=== PATIENT | female | born 1995 | race Caucasian/White ===

== ENCOUNTER 2019-06-24 15:19 | Emergency (ER) | payer OTHER ==
[2019-06-24 15:28] VITALS: BMI 30.6
[2019-06-24] MEDS ORDERED: MAG HYDROX/AL HYDROX/SIMETH -MYLANTA- ORAL SUSPENSION PO ONE (15:32)
--- NOTE | 2019-06-24 15:32 | PDOC ---
Rapid Medical Evaluation Chief Complaint: Pain Time Seen by Provider: 06/24/19 15:29 Medical Evaluation: Vital Signs Temp Pulse Resp BP Pulse Ox 98.5 F 82 117/68 99 06/24/19 15:25 06/24/19 15:25 06/24/19 15:25 06/24/19 15:25 06/24/19 15:31 Patient presents to ED with complaints of: epigastric burning x 1 month , worse after meals, decreased po intake the past few days, no other complaints Patient on brief exam: tenderness to epigastric region, vss I have ordered: labs, urine and maalox Patient to proceed to the ED Discharge Disposition - Diagnosis Epigastric abdominal pain - Referrals - Patient Instructions - Post Discharge Activity
[2019-06-24] MEDS ORDERED: MAG HYDROX/AL HYDROX/SIMETH 30 ML UNIT-DOSE CUP ONE (16:01)
[2019-06-24 16:14] LABS: BASO % 0.9 % (0-2.0); EOS % 2.1 % (0-4.5); HEMOGLOBIN 12.3 GM/dL (10.7-15.3); LYMPH % 27.6 % (8-40); MCH 28.1 pg (25.7-33.7); MCHC 32.5 g/dl (32.0-36.0); MEAN CELL VOLUME 86.4 fl (80-96); MEAN PLT VOLUME 7.8 fl (7.5-11.1); MONO % 9.3 % (3.8-10.2); NEUT % 60.1 % (42.8-82.8); PLATELET COUNT 346 K/MM3 (134-434); RDW 14.5 % (11.6-15.6); WHITE BLOOD COUNT 6.6 K/mm3 (4.0-10.0)
[2019-06-24 16:26] LABS: URINE APPEARANCE CLEAR; URINE BILIRUBIN NEGATIVE (NEGATIVE); URINE COLOR YELLOW; URINE GLUCOSE (UA) NEGATIVE (NEGATIVE); URINE KETONE NEGATIVE (NEGATIVE); URINE LEUK ESTERASE NEGATIVE (NEGATIVE); URINE NITRITE NEGATIVE (NEGATIVE); URINE PROTEIN NEGATIVE (NEGATIVE); URINE UROBILINOGEN 0.2 mg/dL (0.2-1.0)
[2019-06-24 16:29] LABS: ALBUMIN 3.4 g/dl (3.4-5.0); BILIRUBIN,TOTAL 0.2 mg/dL (0.2-1); BLOOD UREA NITROGEN 13.1 mg/dL (7-18); CALCIUM 8.8 mg/dL (8.5-10.1); CREATININE 0.7 mg/dL (0.55-1.3); POTASSIUM 4.1 mmol/L (3.5-5.1)
--- NOTE | 2019-06-24 17:49 | PDOC ---
History of Present Illness - General Chief Complaint: Pain Stated Complaint: ABD PAIN Time Seen by Provider: 06/24/19 15:29 - History of Present Illness Initial Comments: 06/24/19 17:50 24 y/o/f here for epigastric burning for the last month. She states the pain is intermittent and worse with food. She describes the pain as burning. She has not taken any medications for the pain. The pain does not radiate. She has a decreased appetite due to pain. She has had normal bowel movements, last bowel movement was today. She denies any dysuria, hematuria, back pain, fever, cough, chest pain, SOB, or other concerns. 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 No: Diarrhea, Nausea, Vomiting : No: Dysuria, Hematuria Musculoskeletal: No: Back Pain Integumentary: No: Rash Neurological: No: Headache Endocrine: No: Excessive Sweating *Physical Exam - Vital Signs Last Vital Signs Temp Pulse Resp BP Pulse Ox 98.5 F 82 117/68 99 06/24/19 15:25 06/24/19 15:25 06/24/19 15:25 06/24/19 15:25 - Physical Exam General Appearance: Yes: Nourished, Appropriately Dressed HEENT: positive: EOMI, Normal Voice, Symmetrical Neck: positive: Trachea midline, Supple Respiratory/Chest: positive: Lungs Clear, Normal Breath Sounds. negative: Accessory Muscle Use Cardiovascular: positive: Regular Rhythm, Regular Rate, S1, S2 Gastrointestinal/Abdominal: positive: Normal Bowel Sounds, Soft, Other ( epigastric tenderness to palpation) Musculoskeletal: negative: CVA Tenderness Extremity: positive: Normal Capillary Refill Integumentary: positive: Normal Color Neurologic: positive: Fully Oriented, Alert, Normal Mood/Affect ED Treatment Course - LABORATORY CBC & Chemistry Diagram: 06/24/19 15:48 06/24/19 15:48 - ADDITIONAL ORDERS Additional order review: Laboratory Results 06/24/19 06/24/19 15:48 15:48 Sodium 140 Potassium 4.1 Chloride 108 H Carbon Dioxide 24 Anion Gap 8 BUN 13.1 Creatinine 0.7 Est GFR (CKD-EPI)AfAm 142.54 Est GFR (CKD-EPI)NonAf 122.98 Random Glucose 94 Calcium 8.8 Total Bilirubin 0.2 AST 13 L ALT 21 Alkaline Phosphatase 81 Total Protein 7.0 Albumin 3.4 Lipase 127 Urine Color Yellow Urine Appearance Clear Urine pH 7.0 Ur Specific [place] 1.019 Urine Protein Negative Urine Glucose (UA) Negative Urine Ketones Negative Urine Blood Negative Urine Nitrite Negative Urine Bilirubin Negative Urine Urobilinogen 0.2 Ur Leukocyte Esterase Negative 06/24/19 15:48 RBC 4.40 MCV 86.4 MCHC 32.5 RDW 14.5 MPV 7.8 Neutrophils % 60.1 Lymphocytes % 27.6 Monocytes % 9.3 Eosinophils % 2.1 Basophils % 0.9 - Medications Given in the ED: ED Medications Discontinued Medications Generic Name Dose Route Start Last Admin Trade Name Nicolasa PRN Reason Stop Dose Admin Al Hydroxide/Mg Hydroxide 30 ml 06/24/19 15:32 06/24/19 16:10 Mylanta Suspension - PO 06/24/19 15:33 30 ml ONCE ONE Administration Medical Decision Making - Medical Decision Making 06/24/19 18:34 24 y/o/f here for epigastric burning for the last month. She states the pain is intermittent and worse with food. She describes the pain as burning. Patient CBC, CMP, UA were grossly negative. Patient was given Maalox with some improvement in pain. Also given a Pepcid for further symptom management. Patient given information on acid reflux. Discharged with referral to Dr. Wilson. *DC/Admit/Observation/Transfer Diagnosis at time of Disposition: Epigastric abdominal pain - Discharge Dispostion Disposition: HOME Condition at time of disposition: Good - Referrals Referrals: Sami Wilson MD [Staff Physician] - - Patient Instructions Printed Discharge Instructions: DI for Gastroesophageal Reflux Disease (GERD) Additional Instructions: You were in seen in the ER for abdominal pain which is likely due to acid reflux disease. If you have worsening pain, start vomiting, or have other concerns return to the ER. We are referring you to Dr. Wilson, please follow up with him in the next week. Print Language: ESTONIAN - Post Discharge Activity
[2019-06-24] MEDS ORDERED: RANITIDINE HCL 150 MG TABLET (FP) PO ONE (18:10)
[2019-06-24] MEDS ORDERED: RANITIDINE HCL 150 MG TABLET (FP) ONE (18:36)
--- NOTE | 2019-06-24 18:57 | PDOC ---
Attending Attestation - Resident Resident Name: El Clarkamina Arevalo - HPI HPI: 06/24/19 19:25 Pt presents to the ED complaining of burning epigastric pain that has been intermittent for several weeks, but was worse today. Denies fever, nausea or vomiting, bloody stool. Feels better after maalox in the ED. - Physicial Exam PE: 06/24/19 19:27 Agree with resident exam. patient is alert and in no acute distress. Abdomen is soft, non tender, non distended without guarding or rebound. - Medical Decision Making 06/24/19 19:28 Pt presents to the ED complaining of burning epigastric abdominal pain. Differential included gastritis, less likely pancreatitis, biliary disease. Labs checked including LFts and lipase and are negative. Feels improved after maalox. Will discharge home.
[2019-06-24 19:00] VITALS: BP 114/67; PULSE 60; TEMP 97.7
== END 2019-06-24 19:00 | disposition home or self-care (01) ==
LOC: JER 15:19
DX: R10.13 Epigastric pain (principal)
CPT/HCPCS: 36415; 80053; 81003; 83690; 84703; 85025; 99283-25

== ENCOUNTER 2019-07-04 16:26 | Emergency (ER) | payer OTHER ==
[2019-07-04 16:38] VITALS: BP 108/65; PULSE 71; TEMP 98.7; BMI 29.9
== END 2019-07-04 19:30 | disposition left against medical advice (07) ==
LOC: JER 16:26
DX: Z53.21 Procedure and treatment not carried out due to patient leaving prior to being seen by health care provider (principal)
CPT/HCPCS: 99281-25

== ENCOUNTER 2019-10-10 23:55 | Emergency (ER) | payer OTHER ==
[2019-10-11 00:15] VITALS: BP 117/68; PULSE 93; TEMP 97.4; BMI 33.2
--- NOTE | 2019-10-11 00:54 | PDOC ---
History of Present Illness - General Chief Complaint: Pain Stated Complaint: 2 MO PREG,UPPER GASTRIC PAIN Time Seen by Provider: 10/11/19 00:53 History Source: Patient - History of Present Illness Initial Comments: 10/11/19 02:17 24 year old female c/o upper abdominal pain on and off x 2 months. denies urinary symptoms. reports nausea and constipation. denies vaginal bleeding, pelvic, lower abdominal pain PATIENT Was seen by cross country coach and was referred to 10/11/19 05:21 Past History - Past Medical History Allergies/Adverse Reactions: Allergies Allergy/AdvReac Type Severity Reaction Status Date / Time No Known Allergies Allergy Verified 07/04/19 16:51 COPD: No - Immunization History Immunization Up to Date: No - Psycho Social/Smoking Cessation Hx Smoking History: Unknown if ever smoked Hx Alcohol Use: No Drug/Substance Use Hx: No Review of Systems - Review of Systems Able to Perform ROS?: Yes Is the patient limited Ivorian proficient: No Constitutional: No: Symptoms Reported, See HPI, Chills, Diaphoresis, Fever, Loss of Appetite, Malaise, Night Sweats, Weakness, Weight Stable, Unintentional Wgt. Loss, Unexplained wgt Loss, Other *Physical Exam - Vital Signs Last Vital Signs Temp Pulse Resp BP Pulse Ox 97.4 F L 93 H 16 117/68 99 10/11/19 00:06 10/11/19 00:06 10/11/19 00:06 10/11/19 00:06 10/11/19 00:06 - Physical Exam General Appearance: Yes: Appropriately Dressed HEENT: positive: Normal ENT Inspection Respiratory/Chest: positive: Lungs Clear, Normal Breath Sounds Gastrointestinal/Abdominal: positive: Normal Bowel Sounds, Soft. negative: Tender Integumentary: positive: Normal Color, Dry, Warm Neurologic: positive: Fully Oriented, Alert, Normal Mood/Affect ED Treatment Course - LABORATORY CBC & Chemistry Diagram: 10/11/19 03:00 10/11/19 03:00 Medical Decision Making - Medical Decision Making A: abdominal pain in P: labs Abdominal US 10/11/19 02:09 Abd US: Gallstones without secondary findings of cholecystitis. Ultrasound :Uterus measures 8.6centimeters in length. There is a twin IUP. Fetus A demonstrates an estimated gestational age of 7weeks and 1days with normal heart rate of 132beats per minute. The second demonstrates a gestational sac and yolk sac only without pole. There is a small proximal subchorionic bleed. The right ovary measures 3.4centimeters in length and contains a simple 1.6 cm cyst. The left ovary is not visualized. There is no significant free fluid. 1 Discharge - Discharge Information Problems reviewed: Yes Clinical Impression/Diagnosis: Cholelithiasis Qualifiers: Cholelithiasis location: gallbladder Cholecystitis presence: without cholecystitis Biliary obstruction: without biliary obstruction Qualified Code(s) : K80.20 - Calculus of gallbladder without cholecystitis without obstruction Condition: Good Disposition: HOME - Follow up/Referral - Patient Discharge Instructions Patient Printed Discharge Instructions: DI for Gallstones Additional Instructions: avoid fatty foods. follow up with a gastroenerologist as soon as possible. return to the ER for any worsening symptoms - Post Discharge Activity Work/Back to School Note: Back to Work
[2019-10-11 02:21] LABS: PH,URINE 7.5 (5.0-8.0); URINE APPEARANCE TURBID; URINE BILIRUBIN NEGATIVE (NEGATIVE); URINE COLOR YELLOW; URINE GLUCOSE (UA) NEGATIVE (NEGATIVE); URINE KETONE NEGATIVE (NEGATIVE); URINE LEUK ESTERASE NEGATIVE (NEGATIVE); URINE NITRITE NEGATIVE (NEGATIVE); URINE PROTEIN NEGATIVE (NEGATIVE)
[2019-10-11 03:23] LABS: BASO % 0.4 % (0-2.0); EOS % 0.8 % (0-4.5); HEMATOCRIT 34.5 % (32.4-45.2); HEMOGLOBIN 11.3 GM/dL (10.7-15.3); LYMPH % 14.5 % (8-40); MCH 28.1 pg (25.7-33.7); MCHC 32.9 g/dl (32.0-36.0); MEAN CELL VOLUME 85.5 fl (80-96); MEAN PLT VOLUME 7.8 fl (7.5-11.1); MONO % 7.5 % (3.8-10.2); NEUT % 76.8 % (42.8-82.8); PLATELET COUNT 328 K/MM3 (134-434); RBC 4.03 M/mm3 (3.60-5.2); RDW 14.5 % (11.6-15.6); WHITE BLOOD COUNT 9.7 K/mm3 (4.0-10.0)
[2019-10-11 03:52] LABS: ALBUMIN 3.1 g/dl (3.4-5.0); BILIRUBIN,TOTAL 0.2 mg/dL (0.2-1); BLOOD UREA NITROGEN 8.8 mg/dL (7-18); CALCIUM 8.5 mg/dL (8.5-10.1); CREATININE 0.5 mg/dL (0.55-1.3); POTASSIUM 3.6 mmol/L (3.5-5.1); TOT PROT 6.8 g/dl (6.4-8.2)
[2019-10-11 10:15] LABS: ANISOCYTOSIS 0; HELMET CELLS 0; HOWELL-JOLLY BODIES 0; MACROCYTOSIS 0; OVALOCYTE 0; PLATELET ESTIMATE NORMAL; ROULEAU 0; SICKELED CELLS 0; TARGET CELLS 0; TEAR DROP CELLS 0; TOXIC GRANULATION 0
== END 2019-10-11 05:03 | disposition home or self-care (01) ==
LOC: JER 23:55
DX: O26.891 Other specified pregnancy related conditions, first trimester (principal); O99.611 Diseases of the digestive system complicating pregnancy, first trimester; K80.20 Calculus of gallbladder without cholecystitis without obstruction; Z3A.01 Less than 8 weeks gestation of pregnancy
CPT/HCPCS: 36415; 76705-TC; 76801-TC; 80053; 81003; 83690; 85025; 99282-25

== ENCOUNTER 2020-05-07 02:45 | Inpatient (IN) | payer OTHER ==
[2020-05-07] MEDS ORDERED: CITRIC ACID/SODIUM CITRATE 30 ML UNIT-DOSE CUP PO ONE ×2 (04:10→08:25)
[2020-05-07] MEDS ORDERED: ELECTROLYTE-148 SOLN 500 ML IV ONE (04:10)
[2020-05-07] MEDS ORDERED: ELECTROLYTE-148 SOLN 1,000 ML IV SCH (04:40)
[2020-05-07 05:02] VITALS: BMI 36.8
[2020-05-07 05:29] LABS: BASO % 0.3 % (0-2.0); EOS % 1.2 % (0-4.5); HEMOGLOBIN 10.7 GM/dL (10.7-15.3); LYMPH % 19.9 % (8-40); MCH 28.3 pg (25.7-33.7); MCHC 33.3 g/dl (32.0-36.0); MEAN CELL VOLUME 84.9 fl (80-96); MEAN PLT VOLUME 7.9 fl (7.5-11.1); MONO % 8.4 % (3.8-10.2); NEUT % 70.2 % (42.8-82.8); PLATELET COUNT 307 K/MM3 (134-434); RBC 3.77 M/mm3 (3.60-5.2); RDW 14.6 % (11.6-15.6); WHITE BLOOD COUNT 10.1 K/mm3 (4.0-10.0)
[2020-05-07] MEDS ORDERED: AMPICILLIN - 2 GM in SODIUM CHLORIDE 100 ML IVPB ONE (05:30)
[2020-05-07 05:38] LABS: INR 0.89 (0.83-1.09); PROTHROMBIN TIME (PATIENT) 10.5 SEC (9.7-13.0)
[2020-05-07 05:41] LABS: ACTIVATED PTT 28.9 SECONDS (25.2-36.5)
[2020-05-07 05:54] LABS: ALBUMIN 2.6 g/dl (3.4-5.0); BILIRUBIN,TOTAL 0.2 mg/dL (0.2-1); BLOOD UREA NITROGEN 7.3 mg/dL (7-18); CALCIUM 8.8 mg/dL (8.5-10.1); CREATININE 0.5 mg/dL (0.55-1.3); POTASSIUM 4.1 mmol/L (3.5-5.1); TOT PROT 6.6 g/dl (6.4-8.2)
[2020-05-07] MEDS ORDERED: AMPICILLIN SODIUM 2 GM VIAL ONE (06:09)
[2020-05-07] MEDS ORDERED: morphine SULFATE/PF 0.5 MG/ML (2cc Syringe - QUVA) ONE (07:50)
[2020-05-07] MEDS ORDERED: OXYTOCIN 20 UNITS in 0.9% NS 20 UNIT/1,000 ML INFUS.BAG IV ONE ×2 (07:51→11:40)
--- NOTE | 2020-05-07 08:32 | HP ---
Past Medical History - Admission Chief Complaint: Leakage of fluid History of Present Illness: 25 yo @ 37 weeks gestation with 3 prior , admitted for spontaneous rupture of membrane. She desires permanent sterilization. She's pre op for repeat and bilateral tubal ligation. History Source: Patient Limitations to Obtaining History: No Limitations - Past Medical History ...: 5 ...Para: 3 ...Term: 3 ...Induced : 1 ...Living Children: 3 ...LMP: 08/21/19 ...EDC by Sono: 05/26/20 - Past Surgical History Past Surgical History: Yes: Hx Myomectomy: No Hx Transabdominal Cerclage: No - Smoking History Smoking history: Unknown if ever smoked - Alcohol/Substance Use Hx Alcohol Use: No History of Substance Use: reports: None - Social History Usual Living Arrangement: Yes: With Significant Other History of Recent Travel: No Home Medications - Allergies Allergies/Adverse Reactions: Allergies Allergy/AdvReac Type Severity Reaction Status Date / Time No Known Allergies Allergy Verified 07/04/19 16:51 Family Medical History Family History: Unremarkable Review of Systems - Review of Systems Constitutional: reports: No Symptoms Eyes: reports: No Symptoms HENT: reports: No Symptoms Neck: reports: No Symptoms Cardiovascular: reports: No Symptoms Respiratory: reports: No Symptoms Gastrointestinal: reports: No Symptoms Genitourinary: reports: Other (Leakage of fluid) Breasts: reports: No Symptoms Reported Musculoskeletal: reports: No Symptoms Integumentary: reports: No Symptoms Neurological: reports: No Symptoms Hematology/Lymphatic: reports: No Symptoms Psychiatric: reports: No Symptoms Pain Intensity: 2 Physical Exam - Maternity Vital Signs: Vital Signs Temperature 98 F 05/07/20 04:49 Pulse Rate 91 H 05/07/20 04:49 Respiratory Rate 20 05/07/20 04:49 Blood Pressure 118/79 05/07/20 04:49 O2 Sat by Pulse Oximetry (%) Constitutional: Yes: Well Nourished Eyes: Yes: Conjunctiva Clear HENT: Yes: Atraumatic Neck: Yes: Supple Cardiovascular: Yes: Regular Rate and Rhythm Lungs: Clear to auscultation - Abdominal Exam/OB Number of Fetuses: Single Presentation: Vertex - Vaginal Exam/OB Vaginal Bleeding: No Amniotic Membrane Status: Ruptured - Physical Exam Musculoskeletal: Yes: WNL ...Motor Strength: WNL Psychiatric: Yes: Alert, Oriented - Labs Lab Results: CBC, BMP 05/07/20 04:20 05/07/20 04:20 Problem List - Problems (1) 37 weeks gestation of Problems reviewed: Yes Code(s): Z3A.37 - 37 WEEKS GESTATION OF (2) Multiparity, grand, in labor and delivery, antepartum Problems reviewed: Yes Code(s): O09.40 - SUPERVISION OF W GRAND MULTIPARITY, UNSP TRIMESTER (3) Previous section complicating , antepartum condition or complication Problems reviewed: Yes Code(s): O34.219 - MATERNAL CARE FOR UNSP TYPE SCAR FROM PREVIOUS DEL Assessment/Plan 37 weeks gestation Multiparity Previous Spontaneous rupture of membrane Pre op for repeat and bilateral tubal ligation Consent signed Anesthesia to see patient
[2020-05-07] MEDS ORDERED: METHYLERGONOVINE MALEATE 0.2 MG/1 ML AMP IM PRN (09:39)
[2020-05-07] MEDS ORDERED: IBUPROFEN 800 MG/8 ML IJ IVPB PRN (09:39)
[2020-05-07] MEDS ORDERED: IBUPROFEN 600 MG TABLET (FP) PO PRN (09:39)
[2020-05-07] MEDS ORDERED: SIMETHICONE 80 MG TAB.CHEW (FP) PO PRN (09:39)
--- NOTE | 2020-05-07 09:43 | OP ---
Operative Note - Note: Operative Date: 05/07/20 Pre-Operative Diagnosis: Previous / Spontaneous rupture of membrane / Multiparity Operation: Repeat Low Transverse / Bilateral Tubal Ligation Findings: Baby girl in ROT position with true knot on the cord Post-Operative Diagnosis: Same as Pre-op Surgeon: Alicja Marks Drama Critic: Billy Yusuf Anesthesia: Spinal Specimens Removed: Placenta / Portion of Fallopian tubes Estimated Blood Loss (mls): 600 Operative Report Dictated: Yes
[2020-05-07 10:00] LABS: CORD BASE EXCESS -3.9 mmol/L (0-2); CORD HCO3 23.2 mmHg (20-29); CORD PCO2 49.8 mmHg (30-78); CORD pH 7.286 (7.14-7.44)
[2020-05-07] MEDS: OXYTOCIN 20 UNITS in 0.9% NS 20 UNIT/1,000 ML INFUS.BAG IV SCH (10:00)
[2020-05-07 10:04] LABS: CORD BASE EXCESS -3.4 mmol/L (0-2); CORD HCO3 21.8 mmHg (20-29); CORD PCO2 39.9 mmHg (30-78); CORD pH 7.356 (7.14-7.44)
[2020-05-07] MEDS: PRENATAL VITAMINS W/ FOLIC ACID TABLET (FP) PO SCH (10:52)
[2020-05-07] MEDS: AMPICILLIN - 1 GM in SODIUM CHLORIDE 100 ML IVPB SCH ×2 (10:52→21:41)
[2020-05-07] MEDS ORDERED: ACETAMINOPHEN 325 MG TABLET (FP) PO PRN (11:23)
[2020-05-07] MEDS ORDERED: ONDANSETRON 4 MG/2 ML VIAL IVPUSH PRN (11:23)
--- NOTE | 2020-05-07 19:43 | OP ---
DATE OF OPERATION: 05/07/2020 PREOPERATIVE DIAGNOSIS: Thirty-seven weeks' gestation, previous section with rupture of membrane and multiparity. POSTOPERATIVE DIAGNOSIS: Thirty-seven weeks' gestation, previous section with rupture of membrane and multiparity. PROCEDURE: Repeat low transverse section and bilateral tubal ligation. SURGEON: Stevie Marks MD SPECIAL TESTER: STEPHANY Benson ANESTHESIA: Spinal. COMPLICATIONS: None. ESTIMATED BLOOD LOSS: 600 mL. DESCRIPTION OF PROCEDURE: Patient was taken to the operating room where spinal anesthesia was administered. Patient was then prepped and draped in proper sterile fashion. A Pfannenstiel skin incision was made and carried down to the underlying layer of fascia. The fascia was incised in the midline and extended laterally. The inferior aspect of the fascial incision was then grasped with a Fredy clamp, elevated, and the rectus muscle dissected off bluntly. Attention was then turned to the superior aspect of the fascial incision, which in a similar fashion was then grasped with a Fredy clamp, elevated, and the rectus muscle dissected off bluntly. The rectus muscle was then in the midline, the peritoneum identified and entered sharply with the Metzenbaum scissors. The peritoneal incision was extended superiorly and inferiorly, with good visualization of the bladder, and the vesicouterine peritoneum was then grasped with pickup and entered sharply with the Metzenbaum scissors. This incision was extended laterally and a bladder flap created digitally. The bladder blade was inserted and the lower uterine segment was incised using a 10-blade. This incision was extended laterally and the head delivered atraumatically. The nuchal cord was significantly long, and it was wrapped around the body with a true knot on it. Then the nose and mouth were suctioned and the cord clamped and cut. The infant was handed to the awaiting registered pharmacy technician. The placenta was removed manually, the uterus exteriorized and cleared of all clots and debris. The uterine incision was repaired using 0 Biosyn in a running locked fashion. A second layer of the same suture was used as a means to provide excellent hemostasis. The right tube was grabbed a [place], and using a plain gut tie, a 3-cm segment of the tube was tied and cut, and the tip of the tube was cauterized using Bovie cautery. The same procedure was then performed on the left side. The pelvis was then completely irrigated. The uterus was returned to the abdomen. The peritoneum was closed using 2-0 Biosyn in a running fashion, and the fascia was reapproximated using 0 Vicryl in a running fashion. The skin was closed in a subcuticular fashion using 3-0 Vicryl. Patient tolerated procedure well. Patient was then taken to PACU in stable condition. PATHOLOGY: Placenta and portion of fallopian tubes. STEVIE MARKS M.D. [id number]
[2020-05-07] MEDS: ELECTROLYTE-148 SOLN 1,000 ML IV SCH (21:41)
[2020-05-07] MEDS: FERROUS SO4 325 MG TABLET (FP) PO SCH (21:42)
[2020-05-08 08:05] LABS: BASO % 0.4 % (0-2.0); EOS % 0.8 % (0-4.5); HEMATOCRIT 30.6 % (32.4-45.2); HEMOGLOBIN 10.1 GM/dL (10.7-15.3); LYMPH % 8.1 % (8-40); MCH 27.9 pg (25.7-33.7); MCHC 32.9 g/dl (32.0-36.0); MEAN CELL VOLUME 84.8 fl (80-96); MEAN PLT VOLUME 7.8 fl (7.5-11.1); MONO % 8.7 % (3.8-10.2); PLATELET COUNT 269 K/MM3 (134-434); RDW 14.8 % (11.6-15.6); WHITE BLOOD COUNT 12.9 K/mm3 (4.0-10.0)
[2020-05-08 08:31] LABS: POC NITRAZINE POS
[2020-05-08] MEDS: PRENATAL VITAMINS W/ FOLIC ACID TABLET (FP) PO SCH (09:38)
[2020-05-08] MEDS: FERROUS SO4 325 MG TABLET (FP) PO SCH ×2 (09:38→17:35)
[2020-05-08] MEDS ORDERED: BISACODYL 10 MG SUPP.RECT RC PRN (09:39)
--- NOTE | 2020-05-08 10:03 | PN ---
Progress Note (short form) - Note Progress Note: Anesthesia Post op/pain Pt seen and examined S:Alert and awake, comfortable O: Vital Signs Temperature 98.1 F 05/08/20 05:49 Pulse Rate 94 H 05/08/20 05:49 Respiratory Rate 18 05/08/20 06:01 Blood Pressure 96/67 05/08/20 05:49 O2 Sat by Pulse Oximetry (%) 99 05/08/20 02:00 CBC, BMP 05/08/20 07:20 05/07/20 04:20 A/P Current Active Problems 37 weeks gestation of (Acute) Multiparity, grand, in labor and delivery, antepartum (Acute) Previous section complicating , antepartum condition or complication (Acute) s/p c section Doing well post op Continue current care Nicholas Lehman M.D.
--- NOTE | 2020-05-08 10:33 | PN ---
Post Progress Note - Subjective Subjective: 25 yo Para 4, status post repeat and BTL, seen and evaluated. Doing well. Post Day: 1 Type of Delivery: Repeat C/S Vital Signs: Vital Signs Temperature 98.1 F 05/08/20 05:49 Pulse Rate 94 H 05/08/20 05:49 Respiratory Rate 18 05/08/20 06:01 Blood Pressure 96/67 05/08/20 05:49 O2 Sat by Pulse Oximetry (%) 99 05/08/20 02:00 Breast Exam: Yes: Soft Uterus: Yes: Fundus below umbilicus Incision: Yes: Dressing dry and intact Abdomen/GI: Yes: Abdomen soft, Tolerating PO Lochia: Yes: Rubra Lochia, amount: Small Extremities: Yes: Calves non-tender Activity: Ambulating - Labs Labs: CBC WBC 12.9 K/mm3 (4.0-10.0) H 05/08/20 07:20 RBC 3.60 M/mm3 (3.60-5.2) 05/08/20 07:20 Hgb 10.1 GM/dL (10.7-15.3) L 05/08/20 07:20 Hct 30.6 % (32.4-45.2) L 05/08/20 07:20 MCV 84.8 fl (80-96) 05/08/20 07:20 MCH 27.9 pg (25.7-33.7) 05/08/20 07:20 MCHC 32.9 g/dl (32.0-36.0) 05/08/20 07:20 RDW 14.8 % (11.6-15.6) 05/08/20 07:20 Plt Count 269 K/MM3 (134-434) 05/08/20 07:20 MPV 7.8 fl (7.5-11.1) 05/08/20 07:20 Absolute Neuts (auto) 10.6 K/mm3 (1.5-8.0) H 05/08/20 07:20 Neutrophils % 82.0 % (42.8-82.8) 05/08/20 07:20 Lymphocytes % 8.1 % (8-40) D 05/08/20 07:20 Monocytes % 8.7 % (3.8-10.2) 05/08/20 07:20 Eosinophils % 0.8 % (0-4.5) 05/08/20 07:20 Basophils % 0.4 % (0-2.0) 05/08/20 07: Nucleated RBC % 0 % (0-0) 05/08/20 07:20 Problem List - Problems (1) 37 weeks gestation of Code(s): Z3A.37 - 37 WEEKS GESTATION OF (2) Multiparity, grand, in labor and delivery, antepartum Code(s): O09.40 - SUPERVISION OF W GRAND MULTIPARITY, UNSP TRIMESTER (3) Previous section complicating , antepartum condition or complication Code(s): O34.219 - MATERNAL CARE FOR UNSP TYPE SCAR FROM PREVIOUS DEL (4) Status post repeat low transverse section Code(s): Z98.891 - HISTORY OF UTERINE SCAR FROM PREVIOUS SURGERY Assessment/Plan Status post repeat / BTL Ambulation Analgesia as needed Continue routine post op care
[2020-05-09] MEDS: ELECTROLYTE-148 SOLN 1,000 ML IV SCH (01:34)
[2020-05-09] MEDS: OXYTOCIN 20 UNITS in 0.9% NS 20 UNIT/1,000 ML INFUS.BAG IV SCH (01:34)
[2020-05-09] MEDS: PRENATAL VITAMINS W/ FOLIC ACID TABLET (FP) PO SCH (09:56)
[2020-05-09] MEDS: FERROUS SO4 325 MG TABLET (FP) PO SCH (09:56)
--- NOTE | 2020-05-09 10:37 | DS ---
Physical Exam-STOCK BLENDER Vital Signs: Vital Signs Temperature 98.5 F 05/08/20 22:00 Pulse Rate 90 05/08/20 22:00 Respiratory Rate 18 05/08/20 22:00 Blood Pressure 119/75 05/08/20 22:00 O2 Sat by Pulse Oximetry (%) 97 05/08/20 22:00 Constitutional: Yes: Well Nourished Eyes: Yes: Conjunctiva Clear HENT: Yes: Atraumatic Neck: Yes: Supple Cardiovascular: Yes: Regular Rate and Rhythm Respiratory: Yes: Regular Gastrointestinal: Yes: Normal Bowel Sounds Pelvis: Yes: WNL External Genitalia: Yes: Normal Vaginal Exam: Yes: Normal Cervix: Yes: Normal Wound/Incision: Yes: Well Approximated, Steri Strips (in place) Neurological: Yes: Alert, Oriented ...Motor Strength: WNL Psychiatric: Yes: Alert, Oriented Labs: CBC, BMP 05/08/20 07:20 05/07/20 04:20 Delivery - Delivery Type of Anesthesia: Spinal Episiotomy/Laceration: None EBL (cc): 600 Delivery, Single - Stages of Labor Date of Delivery: 05/07/20 Time of Delivery: 08:56 Time Placenta Delivered: 08:57 - Condition of Latin American Studies Director/Ms Sql Server Developer Present: Yes Name: Connie Cheema Infant Gender: Female Weight: 6 lb 10 oz Position: Right, OT Total Hours ROM (Hrs/Mins): 6hrs/57mins - 1 Minute Total Score: 9 5 Minutes Total Score: 9 - [place] Feeding Plan Initial Plan: Elected not to breastfeed exclusively throughout hospitalization Discharge Summary Problems reviewed: Yes Reason For Visit: REPEAT Current Active Problems 37 weeks gestation of (Acute) Multiparity, grand, in labor and delivery, antepartum (Acute) Previous section complicating , antepartum condition or complication (Acute) Status post repeat low transverse section (Acute) Procedures: Principal: Repeat Low Transverse Hospital Course: Routine post op care Health Concerns: None Plan of Treatment: Ambulation Analgesia as needed F/U with MD in 10 days Goals: Resume regular activities in 4-6 weeks Condition: Good - Instructions Diet, Activity, Other Instructions: Regular diet Ambulation No driving, no lifting x 4 weeks F/U with MD in 10 days Disposition: HOME
[2020-05-09 12:34] VITALS: BP 116/70; PULSE 84; TEMP 97.9
--- NOTE | 2020-05-10 10:39 | PATH ---
Surgical Pathology Report Patient Name: THEA PARRY [facility]. Rec. 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 Specimen(s) Received A: PLACENTA B: SCAR TISSUE C: RIGHT FALLOPIAN TUBE, PORTION D: LEFT FALLOPIAN TUBE, PORTION Clinical History , 37.2 weeks, PPROM Final Diagnosis A. PLACENTA, SECTION: 652 G THIRD TRIMESTER PLACENTA WITH TRIVASCULAR UMBILICAL CORD AND UNREMARKABLE PLACENTAL MEMBRANES. B. SCAR, EXCISION: SKIN WITH DERMAL FIBROSIS CONSISTENT WITH SCAR. C. FALLOPIAN TUBE, PORTION, RIGHT, PARTIAL EXCISION: FULL LUMINAL PORTION OF FALLOPIAN TUBE WITH MILD CHRONIC SALPINGITIS. D. FALLOPIAN TUBE, PORTION, LEFT, PARTIAL EXCISION: FULL LUMINAL PORTION OF FALLOPIAN TUBE WITH MILD CHRONIC SALPINGITIS AND FOCAL DECIDUALIZED STROMA. Electronically Signed Thea Rose M.D. Gross Description A. The specimen is received fresh labeled placenta and is a 652 gram, 18 x 15 x 2.5 cm. placenta with attached membranes and umbilical cord. The attached membranes are thin, translucent, with focal opacities, and insert marginally. The umbilical cord measures 38 cm. in length and averages 1.2 cm. in diameter. The cord inserts eccentrically, 4 cm. to the nearest margin. No true knots or strictures are identified. Cut surface of the umbilical cord reveals 3 vessels. The surface is garcia-blue with minimal fibrin deposition and appropriate caliber vessels. The maternal surface is red-brown with focal defects. Sectioning reveals red-brown, spongy parenchyma. No lesions are identified. Carding Doubler sections are submitted in three cassettes as follows: 1- membrane rolls and umbilical cord; 2-3- full thickness sections of placenta. B. Received in formalin labeled "scar" is an ellipse of warren skin measuring 12 x 0.3 cm excised to a depth of 0.5 cm. Well-healed linear scar traverses the surface of the specimen. Carding Doubler sections are submitted in one cassette. C. Received in formalin labeled "right portion of fallopian tube," is a 2.5 cm in length fallopian tube. The outer surface is warren-watson. No fimbria is identified. Sectioning reveals an unremarkable lumen. Carding Doubler sections are submitted in 1 cassette. D. Received in formalin labeled "right portion of fallopian tube," is a 2.2 cm in length fallopian tube. The outer surface is warren-watson. No fimbria is identified. Sectioning reveals an unremarkable lumen. Carding Doubler sections are submitted in 1 cassette.
== END 2020-05-09 13:15 | disposition home or self-care (01) | DRG 540 ==
LOC: JLDR 02:45 → J3W 14:24
PROVIDERS: ADMIT Obstetrics & Gynecology; ATTEND Obstetrics & Gynecology
PROC: 10D00Z1 Extraction of Products of Conception, Low, Open Approach (ICD-10-PCS; principal; 2020-05-07)
PROC: 0UB70ZZ Excision of Bilateral Fallopian Tubes, Open Approach (ICD-10-PCS; 2020-05-07)
DX: O34.211 Maternal care for low transverse scar from previous cesarean delivery (principal); N85.8 Other specified noninflammatory disorders of uterus; Z3A.37 37 weeks gestation of pregnancy; O42.92 Full-term premature rupture of membranes, unspecified as to length of time between rupture and onset of labor; Z30.2 Encounter for sterilization; Z37.0 Single live birth
CPT/HCPCS: 36415; 36600; 80053; 82803; 83986-QW; 85025; 85610; 85730; 86762; 86780; 86850; 86900; 86901; 87340; 87389; 88302-TC; 88304-TC; 88307-TC; U0003